=== PATIENT | female | born 1980 | race Caucasian/White ===

== ENCOUNTER 2023-04-13 18:58 | Emergency (ER) | payer OTHER ==
[2023-04-13 19:05] VITALS: BP 152/94; PULSE 102; RESP 16; TEMP 98.3; BMI 26.2
== END 2023-04-13 19:28 | disposition home or self-care (01) ==
LOC: FER 18:58
DX: T23.151A Burn of first degree of right palm, initial encounter (principal); X12.XXXA Contact with other hot fluids, initial encounter
CPT/HCPCS: 99283-25